=== PATIENT | female | born 1995 | race American Indian/Alaskan Native ===

== ENCOUNTER 2020-02-09 22:04 | Emergency (ER) | payer OTHER ==
[2020-02-09 23:57] VITALS: BP 122/74
--- NOTE | 2020-02-10 01:25 | XRay Report ---
LUMBAR SPINE 2 VIEWS INDICATION / CLINICAL INFORMATION: lower back pain. COMPARISON: None available. FINDINGS: No fracture, subluxation or other skeletal abnormality Signer Name: Santos Colvin MD Signed: 02/10/2020 1:21 AM Workstation Name: [id number]
--- NOTE | 2020-02-10 01:28 | XRay Report ---
CERVICAL SPINE 3 VIEWS INDICATION / CLINICAL INFORMATION: neck pain. COMPARISON: None available. FINDINGS: Slight reversal of the normal cervical contour, sometimes associated with muscle spasm. No fracture o r subluxation. Incidentally noted are bilateral cervical ribs. Signer Name: Santos Colvin MD Signed: 02/10/2020 1:23 AM Workstation Name: [id number]
[2020-02-10] MEDS ORDERED: CYCLOBENZAPRINE 10 MG TAB PO ONE (03:36)
[2020-02-10] MEDS ORDERED: ACETAMINOPHEN 500 MG TAB PO ONE (03:36)
[2020-02-10] MEDS ORDERED: IBUPROFEN 600 MG TAB PO ONE (03:36)
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
== END 2020-02-10 04:26 | disposition home or self-care (01) ==
LOC: ED 22:04
DX: M62.830 Muscle spasm of back (principal); Z79.899 Other long term (current) drug therapy; V49.59XA Passenger injured in collision with other motor vehicles in traffic accident, initial encounter; Y93.89 Activity, other specified; Y92.410 Unspecified street and highway as the place of occurrence of the external cause; Y99.8 Other external cause status
CPT/HCPCS: 72040; 72100